=== PATIENT | female | born 1990 | race American Indian/Alaskan Native ===

== ENCOUNTER 2023-04-01 05:45 | Inpatient (IN) | payer OTHER ==
[2023-04-01] MEDS ORDERED: ELECTROLYTE-148 SOLN 500 ML IV ONE (06:20)
[2023-04-01] MEDS ORDERED: CITRIC ACID/SODIUM CITRATE 30 ML UNIT-DOSE CUP PO ONE (06:20)
[2023-04-01] MEDS ORDERED: ELECTROLYTE-148 SOLN 1,000 ML IV SCH ×2 (06:50→07:45)
[2023-04-01 07:10] VITALS: BMI 36.3
[2023-04-01] MEDS ORDERED: FENTANYL CITRATE/PF 50 MCG/ML VIAL ONE (08:26)
[2023-04-01] MEDS ORDERED: morphine SULFATE/PF 1 MG/2 ML (2cc Syringe - QUVA) ONE (08:26)
[2023-04-01] MEDS ORDERED: ceFAZolin SODIUM 1 GM VIAL ONE (09:11)
[2023-04-01] MEDS ORDERED: OXYTOCIN 10 UNITS/ML VIAL ONE (09:11)
[2023-04-01] MEDS ORDERED: KETOROLAC TROMETHAMINE 30 MG/1 ML VIAL ONE (09:11)
[2023-04-01] MEDS ORDERED: PHENYLEPHRINE HCL 10 MG/1 ML SINGLE DOSE VIAL ONE (09:11)
[2023-04-01] MEDS ORDERED: ONDANSETRON 4 MG/2 ML VIAL ONE (09:11)
[2023-04-01] MEDS ORDERED: IBUPROFEN 800 MG/8 ML IJ IVPB PRN (09:13)
[2023-04-01] MEDS ORDERED: METHYLERGONOVINE MALEATE 0.2 MG/1 ML AMP IM PRN (09:13)
[2023-04-01] MEDS ORDERED: ACETAMINOPHEN 325 MG TABLET (FP) PO PRN (09:13)
[2023-04-01] MEDS ORDERED: ACETAMINOPHEN INJECTION 100 ML IVPB ONE (09:26)
[2023-04-01] MEDS ORDERED: morphine SULFATE/PF 1 MG/2 ML (2cc Syringe - QUVA) EP ONE (09:32)
[2023-04-01] MEDS ORDERED: ONDANSETRON 4 MG/2 ML VIAL IVPUSH PRN (09:32)
[2023-04-01] MEDS ORDERED: ACETAMINOPHEN 1000 MG/100 ML BAG IVPB ONE (09:33)
[2023-04-01] MEDS ORDERED: OXYTOCIN 20 UNITS in 0.9% NS 20 UNIT/1,000 ML INFUS.BAG IV ONE (10:25)
[2023-04-01] MEDS: OXYTOCIN 20 UNITS in 0.9% NS 20 UNIT/1,000 ML INFUS.BAG IV SCH ×2 (11:06→18:34)
[2023-04-01] MEDS: PRENATAL VITAMINS W/ FOLIC ACID TABLET (FP) PO SCH (11:07)
[2023-04-01] MEDS: FERROUS SO4 325 MG TABLET (FP) PO SCH ×2 (11:07→22:38)
[2023-04-01] MEDS ORDERED: oxyCODONE HCL 5 MG TABLET PO PRN (21:13)
[2023-04-02 02:49] VITALS: RESP 18
[2023-04-02 07:14] LABS: BASO % 0.3 % (0-2.0); EOS % 1.1 % (0-4.5); HEMATOCRIT 35.6 % (32.4-45.2); HEMOGLOBIN 11.4 GM/dL (10.7-15.3); LYMPH % 13.1 % (8-40); MEAN CELL VOLUME 78.1 fl (80-96); MEAN PLT VOLUME 9.8 fl (7.5-11.1); MONO % 6.1 % (3.8-10.2); NEUT % 79.4 % (42.8-82.8); PLATELET COUNT 243 10^3/uL (134-434); RBC 4.56 M/mm3 (3.60-5.2); WHITE BLOOD COUNT 15.3 K/mm3 (4.0-10.0)
[2023-04-02] MEDS ORDERED: BISACODYL 10 MG SUPP.RECT RC PRN (09:13)
[2023-04-02] MEDS: FERROUS SO4 325 MG TABLET (FP) PO SCH ×2 (09:29→21:14)
[2023-04-02] MEDS: PRENATAL VITAMINS W/ FOLIC ACID TABLET (FP) PO SCH (09:29)
[2023-04-02] MEDS: SIMETHICONE 80 MG TAB.CHEW (FP) PO PRN (20:35)
[2023-04-03] MEDS: PRENATAL VITAMINS W/ FOLIC ACID TABLET (FP) PO SCH (10:59)
[2023-04-03] MEDS: SIMETHICONE 80 MG TAB.CHEW (FP) PO PRN ×2 (10:59→20:54)
[2023-04-03] MEDS: IBUPROFEN 600 MG TABLET (FP) PO PRN ×2 (10:59→20:53)
[2023-04-03] MEDS: FERROUS SO4 325 MG TABLET (FP) PO SCH ×2 (10:59→21:11)
[2023-04-03] MEDS: SENNOSIDES/DOCUSATE COMBO (SENNA PLUS) TABLET (UD) PO PRN ×2 (11:00→20:53)
[2023-04-04 07:21] LABS: BASO % 0.4 % (0-2.0); HEMATOCRIT 32.5 % (32.4-45.2); HEMOGLOBIN 10.6 GM/dL (10.7-15.3); LYMPH % 15.3 % (8-40); MCH 25.3 pg (25.7-33.7); MCHC 32.6 g/dl (32.0-36.0); MEAN CELL VOLUME 77.5 fl (80-96); MEAN PLT VOLUME 9.7 fl (7.5-11.1); MONO % 6.1 % (3.8-10.2); NEUT % 76.2 % (42.8-82.8); PLATELET COUNT 272 10^3/uL (134-434); RBC 4.19 M/mm3 (3.60-5.2); RDW 15.6 % (11.6-15.6); WHITE BLOOD COUNT 11.9 K/mm3 (4.0-10.0)
[2023-04-04 09:13] VITALS: BP 121/66; PULSE 85; TEMP 98.1
[2023-04-04] MEDS: IBUPROFEN 600 MG TABLET (FP) PO PRN (09:14)
[2023-04-04] MEDS: SIMETHICONE 80 MG TAB.CHEW (FP) PO PRN (09:14)
[2023-04-04] MEDS: PRENATAL VITAMINS W/ FOLIC ACID TABLET (FP) PO SCH (09:15)
[2023-04-04] MEDS: FERROUS SO4 325 MG TABLET (FP) PO SCH (09:15)
== END 2023-04-04 12:00 | disposition home or self-care (01) | DRG 540 ==
LOC: JLDR 05:45 → J3W 10:30
PROVIDERS: ADMIT Obstetrics & Gynecology; ATTEND Obstetrics & Gynecology
PROC: 10D00Z1 Extraction of Products of Conception, Low, Open Approach (ICD-10-PCS; principal; 2023-04-01)
DX: O24.424 Gestational diabetes mellitus in childbirth, insulin controlled (principal); O34.219 Maternal care for unspecified type scar from previous cesarean delivery; Z3A.39 39 weeks gestation of pregnancy; Z37.0 Single live birth
CPT/HCPCS: 36415; 82962; 85025; 88307-TC; 94010